=== PATIENT | female | born 1955 | race Caucasian/White ===

== ENCOUNTER 2025-02-26 14:26 | Outpatient (AMB) | payer MEDICARE, SELFPAY ==
--- NOTE | 2025-02-26 14:32 | A.OFFVIS_ITS ---
Intake Visit Reasons: 1 year SZ Allergies No Known Allergies Allergy (Verified 02/26/25 14:37) Medication List - Last Reconciled 02/26/25 by Huma Gray CNP levetiracetam (Keppra) 1,000 mg PO Q12H phenytoin sodium extended 100 mg orally 2 capsules in the morning and 1 capsule in the evening; HPI Comments Details: She was doing okay. No seizures. No medication side effects. No missed doses. Sleep was okay. Mood was okay. Stress was better after retiring. Retired 02/15/2024. Had seizure on 04/21/2017 with a staring seizure, not responding for 2 minutes, and slow for 5-10 minutes. On 04/23/2017 went blank and lost bladder control. The left hand is held in a stiff position. She had a partial seizure at work on 11/16/2016 when she was standing and not responding. She had 2-3 seizures at work in 2015. She previously would have periods of <2 minutes every 2-3 months as well. She reports no side effects from the medication. No missed doses. No FAYE or dizziness. Review of Systems Const Denies chills, Denies daytime sleepiness, Denies difficulty sleeping, Denies fatigue, Denies fever(s), Denies frequent falls, Denies headache(s), Denies increased appetite, Denies poor appetite, Denies snoring, Denies weakness, Denies weight gain and Denies weight loss Eyes Denies loss of vision ENT Denies vertigo, Denies dizziness, Denies headache(s) and Denies neck pain Card Denies chest pain at rest, Denies chest pain with activity, Denies syncope, Denies leg edema, Denies palpitations, Denies dyspnea and Denies dyspnea on exertion Resp Denies cough, Denies dyspnea, Denies dyspnea on exertion and Denies snoring GI Denies abdominal pain, Denies constipation, Denies heartburn, Denies diarrhea and Denies nausea Denies urinary frequency, Denies urinary incontinence and Denies urinary urgency Musc Denies abnormal gait, Denies back pain, Denies myalgias, Denies arthralgias, Denies neck pain, Denies numbness and Denies tingling Neuro Denies abnormal gait, Denies vertigo, Denies dizziness, Denies syncope, Denies frequent falls, Denies headache(s), Denies lack of coordination, Denies loss of vision, Denies memory loss, Denies numbness, Denies Other visual disturbances, Denies restless legs, Denies seizure-like activity, Denies tingling, Denies paresthesias, Denies tremor(s) and Denies weakness Psych Denies anxiety, Denies depression, Denies auditory hallucinations, Denies memory loss and Denies visual hallucinations Endo Denies fatigue and Denies palpitations Physical Exam Const Other: General Appearance:? normal, in no acute distress. Heart:? S1, S2 normal, no murmurs. Lungs:? clear anteriorly and posteriorly. Musculoskeletal:? normal. Extremities:? no edema. Psych:? alert, oriented, cognitive function intact, cooperative with exam. Neuro Other: Abnormal Neurological Findings:?Course pendular and rotatory congenital nystagmus. Absent ankle reflexes. ? Mental Status: alert and oriented X 3. Normal attention, orientation, memory, and affect. Cranial Nerves: Pupils are equal, round, and reactive to light. External ocular movements dysconjugate with rotatory pendular nystagmus. Visual parker are full, no ptosis. Face is symmetrical, no facial weakness or droop. Facial sensations are normal. Tongue protrudes in midline. Palate elevates symmetrically. Shoulder shrugging is normal Motor Examination: Normal muscle tone, bulk and strength. No atrophy or fasciculations. No drift of the extended upper extremities. Absent ankle reflexes. Sensory Exam: Normal light touch, temperature, pinprick, vibration, and joint- position sensations. Rhomberg sign is absent. Coordination: No ataxia. No titubation. Gait Exam: Within normal limits. Cerebellar Signs: [id number] is okay. Extrapyramidal System: No tremor, rigidity with normal facial expressions. No bradykinesia. No bradyphrenia. Normal arm swing and posture. No propulsion or retropulsion. Speech: Normal. Assessment & Plan Assessment & Plan (1) Seizure disorder: Code(s): G40.909 - Epilepsy, unspecified, not intractable, without status epilepticus Category: Medical Plan: Continue Keppra 1000mg 1 tablet every 12 hours. Continue phenytoin sodium extended capsule 100mg 2 capsules in the morning and 1 capsule in the evening. Medications: New phenytoin sodium extended 100 mg orally 2 capsules in the morning and 1 capsule in the evening; 270 caps 3RF 90 days levetiracetam (Keppra) 1,000 mg PO Q12H 180 tabs 3RF 90 days Coding Level of Care Code Est Pt Level 4 (92527) Diagnoses Seizure disorder G40.909
== END 2025-02-26 14:46 | disposition home or self-care (01) ==
LOC: HO.HSM 14:27
PROVIDERS: PCP Internal Medicine; Visit Provider Registered Nurse
DX: G40.909 Epilepsy, unspecified, not intractable, without status epilepticus (principal)
CPT/HCPCS: 99214

== ENCOUNTER → 2025-02-26 14:26 | Outpatient (BNVA) | payer MEDICARE, SELFPAY | PROVIDERS: PCP Internal Medicine; Visit Provider Registered Nurse | DX: G40.909 Epilepsy, unspecified, not intractable, without status epilepticus (principal); Z79.899 Other long term (current) drug therapy | CPT/HCPCS: 99212 ==